=== PATIENT | male | born 1960 | race Caucasian/White ===

== ENCOUNTER 2020-03-21 11:47 | Inpatient (IN) | payer OTHER, SELFPAY ==
[2020-03-21] VITALS (8 sets, daily range): BP systolic 114–125; BP diastolic 66–90; PULSE 85–95; RESP 13–20; TEMP 36.6–36.8; O2SAT 97–100; BMI 28.3
--- NOTE | 2020-03-21 | ECHO_ITS ---
Patient Info Name: Wilbetr Lea Age: 60 years : 1960 Gender: Female Ht: 69 in Wt: 187 lbs BSA: 2.05 m2 HR: 86 bpm BP: 112 / 78 mmHg Technical Quality: Good Exam Date: 03/21/2020 2:03 PM Exam Location: [facility] Room: ICU9 Patient Status: Inpatient Admit Date: 03/21/2020 Staff Ordering Physician: Shen Lares MD Jacquard Card Lacer: Kennedi Sharma RDCS Attending Provider: Shen Lares MD Referring Physician: Arnaud PETERSON; Exam Type: CA echo doppler color flow Study Info Complete two-dimensional, color flow and Doppler transthoracic echocardiogram is performed with contrast to opacify the left ventricle and to improve the deliniation of the left ventricle endocardial borders. Summary 1. Left ventricular systolic function is mildly reduced, estimated at 40%.. 2. The left ventricular diastolic function is grade II diastolic dysfunction. 3. The apical septum, apical lateral wall, apical cap, and mid anteroseptal are akinetic. 4. There is trace mitral valve regurgitation. 5. There is mild tricuspid valve regurgitation. 6. No pulmonary hypertension, estimated pulmonary arterial systolic pressure is 31 mmHg. Left Ventricle Left ventricular systolic function is mildly reduced, estimated at 40%.. Left ventricular chamber dimension is normal. There is no increased left ventricular wall thickness. Left ventricular septal wall motion is normal. The left ventricular diastolic function is grade II diastolic dysfunction. Global longitudinal strain is abnormal at -8 %. The apical septum, apical lateral wall, apical cap, and mid anteroseptal are akinetic. Right Ventricle Right ventricular chamber dimension is normal. Right ventricular systolic function is normal. Left Atria Left atrial chamber dimension is normal. Right Atria Right atrial chamber dimension is normal. Aortic Valve The aortic valve is trileaflet. There is no aortic valve sclerosis. There is no aortic valve stenosis. There is no aortic valve regurgitation. Pulmonic Valve The pulmonic valve is normal. There is no pulmonic valve stenosis. There is trace pulmonic regurgitation. Mitral Valve The mitral valve has normal leaflets. There is no mitral valve stenosis. There is trace mitral valve regurgitation. Tricuspid Valve The tricuspid valve leaflets are normal. There is no significant tricuspid valve stenosis. There is mild tricuspid valve regurgitation. No pulmonary hypertension, estimated pulmonary arterial systolic pressure is 31 mmHg. Pericardium/Pleural The pericardium appears normal. There is no pericardial effusion. Inferior Vena Cava Normal inferior vena cava with >50% collapse upon inspiration consistent with normal right atrial pressure, 5 mmHg. Aorta The aortic root size at the sinus of Valsalva is normal. The prox ascending aorta size is normal. Left Ventricular Outflow Tract Name Value Normal LVOT 2D LVOT Diameter 2.1 cm LVOT Doppler LVOT Peak Gradient 4 mmHg LVOT Mean Gradient 3 mmHg LVOT VTI
--- NOTE | 2020-03-21 11:56 | ECG_ITS ---
Measurements Intervals [place] Rate: 84 P: 33 DC: 130 QRS: -51 QRSD: 86 T: 28 QT: 315 QTc: 373 Interpretive Statements SINUS RHYTHM INFERIOR INFARCT, AGE INDETERMINATE ANTEROLATERAL ST ELEVATION MYOCARDIAL INFARCT- ACUTE HIGH LATERAL ST ELEVATION MYOCARDIAL INJURY- ACUTE ABNORMAL ECG Electronically Signed On 03-21-2020 12:10:58 CDT by Sebastián Mann D.O.
[2020-03-21 12:09] LABS: Basophils Absolute Auto 0.1 K/mm3 (0.0-0.1); Basophils Percent Auto 0.3 % (0.2-1.2); Eosinophils Absolute Auto 0.1 K/mm3 (0-0.3); Eosinophils Percent Auto 0.3 % (0-4.4); Hematocrit 44.5 % (37.0-47.0); Immature Granulocyte Absolute 0.05 K/mm3 (0.00-0.031); Immature Granulocyte Percent A 0.3 % (0-0.5); Lymphocytes Absolute Auto 1.47 K/mm3 (0.9-3.2); Mean Corpuscular HGB Conc 33.7 g/dl (32-36); Mean Corpuscular Hemoglobin 31.4 pg (26-34); Mean Corpuscular Volume 93.3 fl (80-100); Mean Platelet Volume 9.8 fl (7.4-10.4); Monocytes Absolute Auto 1.6 K/mm3 (0.1-0.6); Monocytes Percent Auto 10.6 % (2.6-8.5); Neutrophils Absolute Auto 11.6 K/mm3 (1.3-6.7); Neutrophils Percent Auto 78.5 % (45.5-73.1); Platelet Count Result 254 k/mm3 (150-375); Red Blood Count 4.77 M/mm3 (4.2-5.4); Red Cell Distribution Width 13.7 % (11.5-14.5); White Blood Count 14.8 K/mm3 (4.5-10.0)
[2020-03-21] MEDS: ASPIRIN 81 MG CHEWABLE TABLET 324 MG PO (12:17)
[2020-03-21 12:19] LABS: INR 1.1
[2020-03-21 12:24] LABS: Blood Urea Nitrogen 27 mg/dL (7-17); Calcium 9.3 mg/dL (8.4-10.2); Carbon Dioxide 29 mmol/L (22-30); Chloride 98 mmol/L (98-107); Estimated CRCL calculation 34 ml/min; Estimated Glomerular Filt Rate 31; Glucose 108 mg/dL (65-105); Potassium 4.4 mmol/L (3.4-5.0); Sodium 133 mmol/L (137-145)
--- NOTE | 2020-03-21 12:34 | ED.CHESTPAIN ---
HPI - Chest Pain General Chief Complaint: Chest Pain Stated Complaint: possibly a heart attack Time Seen by Provider: 03/21/20 12:07 Source: patient Mode of arrival: ambulatory Limitations: no limitations History of Present Illness HPI narrative: This patient is a 60 year old male with history of hypertension and hyperlipidemia who presents to ER for evaluation of chest pain. He developed substernal chest pressure Saturday morning while performing yard work. He states he stopped working and his pain resolved. He states he then starting cutting shrubs again and his pain resolved. He states this pain continued until this morning at 2 am. He also reports associated shortness of breath until this morning. He denies history of cardiac disease. He went to see his PCP and he was found to have abnormal EKG so he was referred to ER. HE denies chest pain currently MD complaint: chest pain Onset (ago): day(s) Related Data Home Medications Medication Instructions Recorded Confirmed amlodipine-benazepril 1 cap PO DAILY 03/21/20 03/21/20 atorvastatin 10 mg PO DAILY 03/21/20 03/21/20 hydrochlorothiazide 12.5 mg PO DAILY 03/21/20 03/21/20 tramadol 50 mg PO Q6H PRN 03/21/20 03/21/20 Allergies Allergy/AdvReac Type Severity Reaction Status Date / Time No Known Allergies Allergy Verified 03/21/20 12:11 Review of Systems Review of Systems: All systems reviewed & are unremarkable except as noted in HPI and below Constitutional: Constitutional: Denies chills and Denies fever(s) Cardiovascular: Cardiovascular: Reports chest pain, Denies rapid heart rate and Reports radiating jaw, neck or arm pain Respiratory: Respiratory: Reports dyspnea Gastrointestinal: Gastrointestinal: Denies abdominal pain, Denies diarrhea, Denies nausea and Denies vomiting PMFSH Past Medical History Medical History Hyperlipidemia Hypertension Surgical History Surgical History H/O repair of rotator cuff Family History Family History Father Acute myocardial infarction Social History Social History Smoking status: Former smoker Alcohol intake: never Substance use: never Substance use type: does not use Gender identity (if verbalized by the patient): Male Exam Narrative: Exam Narrative: GENERAL: Well-appearing, well-nourished, and in no acute distress. HEAD: Normocephalic, atraumatic EYES: PERRLA and EOMI, conjunctiva clear without discharge THROAT:Mucous membranes moist, Oropharynx normal without erythema, exudate, peritonsillar swelling or fluctuance NECK: Supple, without lymphadenopathy or mass RESPIRATORY: No respiratory distress, Airway patent, Respirations non-labored, Clear to auscultation without rales, rhonchi or wheeze HEART: Regular rate and rhythm. No murmur heard. Normal peripheral pulses. ABDOMEN: Soft, nontender, nondistended, normal active bowel sounds. No masses. No rebound or guarding, No organomegaly. EXTREMITIES: No edema, normal strength with full range of motion. SKIN: Warm, dry, normal color without rash NEURO: Alert and oriented x3. CN 2-12 grossly intact. No focal deficits. PSYCH: Normal mood and affect. Course Consultations Consultation #1: Dr. Vasques is at bedside to Evaluated patient. Patient EKG has diffused ST elevation so he likely completely infarct. Dr. Vasques called his team to take patient to lab analyst. Date: 03/21/20 Time: 12:05 Vital Signs Vital signs: Vital Signs Temperature 97.9 F 03/21/20 11:50 Pulse Rate 88 03/21/20 11:50 Respiratory Rate 14 03/21/20 11:50 Blood Pressure 114/75 03/21/20 11:50 Pulse Oximetry 100 03/21/20 11:50 Temperature 98.2 F 03/21/20 16:00 Pulse Rate 90 03/21/20 18:00 Respiratory Rate 20 03/21/20 16:00 Blood Pres
--- NOTE | 2020-03-21 13:21 | PM.IMHP ---
H&P: HPI History of Present Illness Chief complaint: stemi Narrative: date of service 03/21/2020 Wilbert Lea is a 60 year old male with past medical history of hypertension and hyperlipidemia who started Saturday and 1 working having central chest pain then it resolved followed by shortness of breath that continued and resolved to a.m. this morning. He visited his primary care doctor did an EKG and sent him to the emergency room. EKG shows Q-waves lead V1 to V6 with ST elevation. at this time patient denies chest pain, shortness of breath, dizziness, syncope, palpitations. He stated when he had the chest pain he uses ibuprofen to thin the blood. he takes ibuprofen 3 times per week for headaches. denies smoking, alcohol, family history of CAD. at home he takes benazepril, water pill, cholesterol pill. tramadol, ibuprofen. Review of Systems Review of Systems: All systems reviewed & are unremarkable except as noted in HPI and below Constitutional: Constitutional: Denies chills, Denies fatigue, Denies fever(s), Denies headache(s) and Denies snoring Eyes: Eyes: Denies eye discharge and Denies loss of vision ENT: Denies dizziness, Denies headache(s), Denies nasal discharge and Denies sore throat Cardiovascular: Cardiovascular: Reports as per HPI, Reports chest pain, Denies syncope, Denies rapid heart rate, Denies leg edema, Reports dyspnea, Reports dyspnea on exertion, Denies orthopnea and Denies paroxysmal nocturnal dyspnea Respiratory: Respiratory: Denies chest congestion, Denies cough, Reports dyspnea, Reports dyspnea on exertion, Denies snoring and Denies wheezing Gastrointestinal: Gastrointestinal: Denies abdominal pain, Denies diarrhea, Denies nausea and Denies vomiting Genitourinary: Genitourinary: Denies hematuria, Denies urinary frequency, Denies dysuria and Denies flank pain Musculoskeletal: Musculoskeletal: Denies myalgias, Denies arthralgias and Denies joint swelling Neurologic: Denies Abnormal speech present, Denies dizziness, Denies syncope, Denies headache(s), Denies focal weakness and Denies loss of vision Psychiatric: Psychiatric: Denies anxiety and Denies depression Endocrine: Endocrine: Denies cold intolerance, Denies fatigue and Denies heat intolerance Hematologic/Lymphatic: Hematologic/Lymphatic: Denies easy bleeding and Denies easy bruising Allergic/Immunologic: Allergic/Immunologic: Denies urticaria and Denies wheezing PMFSH Past Medical History Medical History Hyperlipidemia Hypertension Surgical History Surgical History H/O repair of rotator cuff Family History Family History Father Acute myocardial infarction Social History Social History Smoking status: Never smoker Alcohol intake: never Meds Home Medications and Allergies Allergies Allergy/AdvReac Type Severity Reaction Status Date / Time No Known Allergies Allergy Verified 03/21/20 12:11 Vital Signs Vital Signs - 24 hr 03/21/20 11:50 03/21/20 12:11 03/21/20 12:17 Temperature 36.6 C Pulse Rate 88 86 93 Respiratory Rate 14 13 Blood Pressure 114/75 124/66 Pulse Oximetry 100 100 03/21/20 12:18 Temperature Pulse Rate Respiratory Rate Blood Pressure Pulse Oximetry 100 Exam Const: General: cooperative, healthy appearing, comfortable, no acute distress and well developed Nutritional Appearance: well nourished Orientation/consciousness: patient oriented x3 HENMT: Head: normal to inspection, normocephalic and atraumatic Ears: hearing grossly normal bilaterally and external ears normal General nose exam: Normal external nose present and Normal nares present Face and sinus: normal facial exam and no erythema Mouth: Yes moist mucous membranes and No lip abnormal Throat: uvula midline
--- NOTE | 2020-03-21 13:29 | P.PCNCC_ITS ---
Cardiac Cath Procedure Note Date of procedure:: 03/21/20 Performing physician:: Shen Lares MD date of service March 21, 2020 Indication:: late presentation STEMI Brief clinical history:: Wilbert Lea is a 60 year old male with past medical history of hypertension and hyperlipidemia who started Saturday and 1 working having central chest pain then it resolved followed by shortness of breath that continued and resolved to a.m. this morning. He visited his primary care doctor did an EKG and sent him to the emergency room. EKG shows Q-waves lead V1 to V6 with ST elevation. at this time patient denies chest pain, shortness of breath, dizziness, syncope, palpitations. He stated when he had the chest pain he uses ibuprofen to thin the blood. he takes ibuprofen 3 times per week for headaches. denies smoking, alcohol, family history of CAD. Procedure Procedure performed:: 1-Moderate sedation that started at 12: 49 pm and ended at 1317 pm using 3mg of Versed and 50mg fentanyl. The registered nurse mac simmons. 2-Selective left and right coronary angiogram. 3-Left heart catheterization with measurement of LVEDP and measurement of gradient across aortic valve. 4- LV angiogram. 4-Right common femoral arterial angiogram. 5-Deployment of 6 Palestinian Angio-Seal. Sedation/Medication given:: Moderate sedation. Access site:: Right common femoral artery. Estimated blood loss:: 10cc Procedure note:: After informed consent patient was brought in to systems testing laboratory technician with the was draped and prepped in usual manner. Moderate sedation was given and the right groin was infiltrated using 1% lidocaine. Five Palestinian sheath was obtained using micropuncture needle and the modified Seldinger technique. Selective left coronary angiogram was done using JL4 catheter with the tip of the catheter placed in the left main coronary artery. Selective right coronary angiogram was done using JR4 catheter with the tip of the catheter placed to the right coronary artery. After that 5 Palestinian pigtail catheter was advanced across the aortic valve into the left ventricle with measurement of LVEDP and measurement of gradient across aortic valve. LV angiogram was done as well. Right common femoral arterial angiogram was done. Findings:: 1- left coronary artery is a large artery that divides into large LAD, large circumflex artery. Left main Has minimal irregularities. 2- left anterior descending artery is a large artery And totally occluded in the mid segment. approximately diffuse 20% stenosis. proximally gives rise to small to medium diagonal 1 and diagonal 2 branches that looked unremarkable. 3- left circumflex artery is a large artery as in the mid segment 40% to 50% stenosis. 4- right coronary artery is Large artery and dominant and has ostial 40%. And diffuse minimal irregularities. 5- LVEDP was 15 mm Hg and no gradient across aortic valve. 5- LV angiogram shows estimated ejection fraction 40-45%. A kinesis of mid anterior wall, apical, apical inferior wall. Cannot exclude a thrombus at the apex. 6- opening arterial pressure was 110/70 and closing pressure was 105/65. 7- right femoral artery angiogram shows no significant disease in the right common femoral artery. Conclusion:: 1- late presentation STEMI, totally occluded mid LAD. 2- mid left circumflex artery 40-50%. 3- ostial right coronary artery 40%. 4- estimated ejection fraction 40-45%. Assessment and Plan Additional Plan 1- continue aspirin indefinitely. 2- high-intensity statin. 3- obtain an echocardiogram with contrast to rule out apical thrombus.
--- NOTE | 2020-03-21 13:29 | WPDMODSED ---
Moderate Sedation Note-Pt Data Patient Data Allergies Allergy/AdvReac Type Severity Reaction Status Date / Time No Known Allergies Allergy Verified 03/21/20 12:11 Sedation/Anesthesia: No previous sedation/anesthesia problems (including family history). [facility] Past Medical History Medical History Hyperlipidemia Hypertension Surgical History Surgical History H/O repair of rotator cuff Family History Family History Father Acute myocardial infarction Social History Social History Smoking status: Never smoker Alcohol intake: never Mod Sed Physical Exam Physical Exam Pre Procedural Exam: Normal: Appearance, Eyes, Ears, Nose, Neck, Throat, Airway, Lungs, Heart Size, Heart Rate, Heart Rhythm, Neuro Exam, Abdomen, Liver, Kidneys, Spleen, Breasts, Genitalia, Extremities and Skin Hours since solid foods: 8 Hours since liquid intake: 8 Internal Medicine - PN: Obj Da Vital Signs Vital Signs: Vital Signs - 24 hr 03/21/20 11:50 03/21/20 12:11 03/21/20 12:17 Temperature 36.6 C Pulse Rate 88 86 93 Respiratory Rate 14 13 Blood Pressure 114/75 124/66 Pulse Oximetry 100 100 03/21/20 12:18 Temperature Pulse Rate Respiratory Rate Blood Pressure Pulse Oximetry 100 Labs CBC & Chem 7: 03/21/20 11:58 03/21/20 11:58 Labs: Laboratory Results - last 24 hr 03/21/20 03/21/20 03/21/20 11:58 11:58 11:58 WBC 14.8 H RBC 4.77 Hgb 15.0 Hct 44.5 MCV 93.3 MCH 31.4 MCHC 33.7 RDW 13.7 Plt Count 254 MPV 9.8 Immature Gran % (Auto) 0.3 Neut % (Auto) 78.5 H Lymph % (Auto) 10.0 L [place] % (Auto) 10.6 H Eos % (Auto) 0.3 Baso % (Auto) 0.3 Lymph # (Auto) 1.47 [place] # (Auto) 1.6 H Eos # (Auto) 0.1 Baso # (Auto) 0.1 Abs Immat Gran (auto) 0.05 H Absolute Neuts (auto) 11.6 H Absolute Nucleated RBC 0.0 Nucleated RBC % 0.0 PT 14.0 INR 1.1 APTT 30.0 Sodium 133 L Potassium 4.4 Chloride 98 Carbon Dioxide 29 BUN 27 H Creatinine 1.70 H Estim Creat Clear Calc 34 Estimated GFR 31 L Glucose 108 H Calcium 9.3 Troponin I 24.900 H* ASA Classification/Sedation ASA Classification/Sedation ASA Class: I Emergent: No Risks: Risks, benefits and alternatives explained and patient/family accepted plan for sedation. Patient re-evaluated immediately prior to sedation.
--- NOTE | 2020-03-21 13:29 | WPDHPUPDATE1 ---
History and Physical Update Update Date/Time: 03/21/20 13:29 History and Physical has been reviewed, including an updated exam of the patient. There are NO changes in the patient's condition. Risks, benefits, and alternatives have been discussed and questions answered. Patient agrees to proceed with procedure.
--- NOTE | 2020-03-21 14:13 | ADMIMU ---
This patient, Wilbert Lea, was admitted to IMU status, and placed in Intensive Care Unit-9 at 1335. Patient/family oriented to hospital policies and general routines including ID bracelet, bed and alarms, visiting hours, pain management, procedures, bathroom and other care routines, personal items, smoking policy, room service/diet, and visiting hours. Valuables list has been completed. Information on how to activate the Rapid Response Team has been discussed. Patient/Family are encouraged to report perceived risks to care and to ask questions if they do not understand what they are told or what they should do.
[2020-03-21] MEDS: SODIUM CHLORIDE 0.9% IV 1,000 ML 75 ML IV CONT (14:28)
[2020-03-21] MEDS: PERFLUTREN LIPID MICROSPHERES 1.5 ML VIAL DILUTED TO 10 ML TOTAL VOLUME IV PUSH (16:03)
[2020-03-21] MEDS: ATORVASTATIN 40 MG TABLET 80 MG BY MOUTH (16:08)
[2020-03-21] MEDS: LOSARTAN POTASSIUM 25 MG TABLET PO (16:08)
[2020-03-21] MEDS: METOPROLOL TARTRATE 12.5 MG TABLET PO (22:09)
[2020-03-22] VITALS (12 sets, daily range): BP systolic 106–113; BP diastolic 68–78; PULSE 76–94; RESP 16–18; TEMP 36.6–36.8; O2SAT 95–97
[2020-03-22] MEDS: traMADol HCL 50 MG TABLET PO (04:32)
[2020-03-22 05:20] LABS: Blood Urea Nitrogen 21 mg/dL (7-17); Calcium 8.4 mg/dL (8.4-10.2); Carbon Dioxide 27 mmol/L (22-30); Chloride 103 mmol/L (98-107); Estimated CRCL calculation 50 ml/min; Estimated Glomerular Filt Rate 42; Glucose 96 mg/dL (65-105); Potassium 4.5 mmol/L (3.4-5.0); Sodium 132 mmol/L (137-145)
[2020-03-22] MEDS: LOSARTAN POTASSIUM 25 MG TABLET PO (10:01)
[2020-03-22] MEDS: METOPROLOL TARTRATE 12.5 MG TABLET PO ×2 (10:01→21:23)
[2020-03-22] MEDS: ASPIRIN 81 MG ENTERIC TABLET PO (10:01)
--- NOTE | 2020-03-22 11:16 | PM.PNCARD ---
Progress Note: A&P Assessment and Plan (1) Myocardial infarction: Code(s): I21.9 - Acute myocardial infarction, unspecified Status: Acute Assessment and Plan: Patient with late presentation ST-elevation ND, found to have occluded LAD. Apparently, no PCI was performed delayed presentation. Currently, patient denies chest pain or shortness of breath. Continue aspirin, will add clopidogrel. Continue beta-pepito, statin. Transferred to telemetry. Subjective Date/time seen: 03/22/20 11:16 Date of service 03/22/2024 Chief complaint: Presented with shortness of breath Interval history: Patient presented with shortness of breath that started 4 days ago, found to have ST elevation in the anteroseptal leads. Found to have occluded mid LAD, and apparently PCI was not performed due to the patient's late presentation. Patient denies shortness of breath at present. He denies chest pain. On telemetry, he is in sinus rhythm with persistent ST elevation. Review of Systems Constitutional: Constitutional: Denies chills, Denies fatigue, Denies fever(s) and Denies headache(s) Eyes: Eyes: Reports as per HPI, Denies change in vision, Denies loss of vision and Denies eye pain ENT: Reports as per HPI, Reports Normal hearing present, Denies headache(s), Denies lip swelling, Denies epistaxis and Denies sore throat Cardiovascular: Cardiovascular: Reports as per HPI, Denies chest pain, Denies syncope, Denies irregular heart rhythm, Denies lightheadedness and Denies dyspnea Respiratory: Respiratory: Reports as per HPI, Denies cough, Denies dyspnea and Denies wheezing Gastrointestinal: Gastrointestinal: Reports as per HPI, Denies abdominal pain, Denies melena, Denies nausea and Denies vomiting Genitourinary: Genitourinary: Reports as per HPI Musculoskeletal: Musculoskeletal: Reports as per HPI, Denies myalgias, Denies muscle cramps and Denies muscle weakness Integumentary/Breasts: Skin/Breast: Reports as per HPI, Denies pruritus and Denies rash Neurologic: Reports as per HPI, Reports Normal hearing present, Denies behavioral changes, Denies syncope, Denies headache(s) and Denies loss of vision Psychiatric: Psychiatric: Reports as per HPI, Denies anxiety, Denies behavioral changes and Denies depression Endocrine: Endocrine: Reports as per HPI, Denies fatigue, Denies polydipsia and Denies polyuria Hematologic/Lymphatic: Hematologic/Lymphatic: Reports as per HPI, Denies easy bleeding and Denies easy bruising Allergic/Immunologic: Allergic/Immunologic: Reports as per HPI, Denies lip swelling and Denies wheezing Exam Const: General: no acute distress, alert and awake HENMT: Head: normocephalic and atraumatic Ears: hearing grossly normal bilaterally and external ears normal General nose exam: Normal external nose present and no epistaxis Face and sinus: normal facial exam and no ecchymosis Mouth: Yes tongue normal and Yes moist mucous membranes Teeth and gingiva: dentition normal Eyes: Conjunctivae: conjunctivae normal Sclera: sclerae normal Pupils: Equal, round and reactive pupils present EOM: EOMs intact bilaterally Neck: Neck: normal visual inspection, supple and no JVD Thyroid: thyroid normal Carotids: normal carotid upstroke Resp: Effort & Inspection: normal respiratory effort and able to speak in complete sentences Auscultation: clear to auscultation bilaterally Cardio: Jugular venous distension: no JVD Rate: regular rate Rhythm: regular rhythm Heart sounds: S1 normal heart sound present, S2 normal heart sound present and no murmurs GI: Inspection: normal to inspection GI Palp: No abdominal tenderness Auscultation: normal bowel sounds Skin: Other: no rash on exposed areas, no cyanosis Neuro: Cranial nerves: Yes Equal, round and reactive pupils present and Yes Normal hearing present Other: alert, oriented, no major focal deficits on gross neurological examination Extrem: Other: no edema, no cyanosis, no major
[2020-03-22] MEDS: CLOPIDOGREL BISULFATE 75 MG TABLET PO (13:07)
[2020-03-22] MEDS: ATORVASTATIN 40 MG TABLET 80 MG BY MOUTH (17:21)
[2020-03-23] VITALS (8 sets, daily range): BP systolic 116–119; BP diastolic 74–77; PULSE 79–95; RESP 17–22; TEMP 36.8–36.9; O2SAT 98–99
[2020-03-23] MEDS: ASPIRIN 81 MG ENTERIC TABLET PO (08:16)
[2020-03-23] MEDS: CLOPIDOGREL BISULFATE 75 MG TABLET PO (08:16)
[2020-03-23] MEDS: LOSARTAN POTASSIUM 25 MG TABLET PO (08:17)
[2020-03-23] MEDS: METOPROLOL TARTRATE 12.5 MG TABLET PO (08:17)
[2020-03-23 11:27] LABS: Blood Urea Nitrogen 20 mg/dL (9-20); Calcium 8.4 mg/dL (8.4-10.2); Carbon Dioxide 27 mmol/L (22-30); Chloride 103 mmol/L (98-107); Estimated CRCL calculation 60 ml/min; Estimated Glomerular Filt Rate > 60; Glucose 123 mg/dL (75-110); Potassium 4.1 mmol/L (3.4-5.0); Sodium 134 mmol/L (137-145)
--- NOTE | 2020-03-29 16:55 | PM.DS ---
DS: Admitting Diagnosis Admitting Diagnosis Admitting Diagnosis: Acute myocardial infarction, unspecified DS: Discharge Diagnosis Discharge Diagnosis (1) Myocardial infarction: Code(s): I21.9 - Acute myocardial infarction, unspecified Status: Acute Assessment and Plan: Late presentation ST-elevation [place], found to have occluded LAD. No PCI was performed delayed presentation. Echocardiogram 03/21/2020: LV systolic function mild reduced estimated EF 40%. LV diastolic dysfunction is grade 2. Apical septum, apical lateral wall, apical cap and mid anterior septal are akinetic. Trace mitral valve regurgitation. No pulmonary hypertension. Estimated pulmonary arterial systolic pressure 31 mm Hg. Denies chest discomfort, shortness of breath or lightheadedness. Continue aspirin, clopidogrel, losartan, Metoprolol succinate and atorvastatin. Right groin site without swelling or bleeding. No femoral bruit. Distal pulses intact. Still has some mild tenderness. Very long discussion regarding coronary artery disease, myocardial infarction, activity restrictions post [place], medications and importance of close follow-up. He is adamant that he does not want to see Dr Lares or anyone in our group. He will follow up with a packaging engineer at [place] however the next available opening for a new patient is in April. He was instructed to follow up with his Primary Care Provider within 2 weeks. Records from [place] will be scanned into his EPIC chart for the physician to review. CD disc of his cardiac catheterization will be mailed for her review as well DS: Summary Hospital Course Reason for hospitalization: Chest pain Myocardial infarction Hospital Course: 60-year-old male with past medical history of hypertension and hyperlipidemia started having chest discomfort followed by shortness of breath the Saturday before admission. On Saturday morning he saw his Primary Care Provider who did an EKG and sent him to the emergency room. The EKG showed Q-waves in lead V1 to V6 with ST elevation. At the time of his admission he denied any chest pain, shortness of breath, dizziness, syncope or palpitations. He was taken to the cardiac catheterization lab by Dr Lares on 03/21/2020 with a significant findings of totally occluded mid LAD. Mid left circumflex artery 40-50%. Ostial right coronary artery 40%. Estimated ejection fraction 40-45%. Echocardiogram did not reveal any thrombus. He was started on aspirin, atorvastatin, losartan and Metoprolol tartrate. Clopidogrel 75 mg daily was added to his regimen. He had no arrhythmias. Vital signs were stable.Chest discomfort or shortness of breath. Right groin site was without swelling or bleeding. No femoral bruit. Distal pulses intact. He was discharged home in stable and pain-free condition. Status at Discharge Functional status at discharge: independent ambulation Overall status at discharge: patient is back to baseline Time Spent with Patient Time attestation: Total time spent providing and/or coordinating discharge services: 44 minutes in his room answering the number questions, discussing coronary artery disease, LV dysfunction, medications, activity restrictions, obtaining his follow-up appointment with packaging engineer at [place], obtaining CD disc of his cardiac catheterization to be mailed to , making phone call to see if he get an earlier appointment, cancelling the appointment scheduled in our office. 20 minutes to do discharge orders and discharge summary Total time: 64 minutes Time spent: Greater than 30 minutes Exam Const: General: cooperative, healthy appearing, comfortable, no acute distress, well developed, alert and awake Nutritional Appearance: well nourished Orientation/consciousness: patient oriented x3 HENMT: Head: normal to inspection, normocephalic and atraumatic Ears: hearing grossly normal bilaterally and external ears n
== END 2020-03-23 13:09 | disposition home or self-care (01) | DRG 282 ==
LOC: ANHED 12:18 → ANHICU 12:34
PROVIDERS: Nurse Practitioner Adult Health; Admitting Provider Internal Medicine Cardiovascular Disease; Emergency Provider General Practice; PCP Internal Medicine; Visit Provider Internal Medicine Cardiovascular Disease
PROC: 4A023N7 Measurement of Cardiac Sampling and Pressure, Left Heart, Percutaneous Approach (ICD-10-PCS; CPT 93452; principal; 2020-03-21 12:40)
PROC: 4A023N7 Measurement of Cardiac Sampling and Pressure, Left Heart, Percutaneous Approach (ICD-10-PCS; 2020-03-21 12:40)
DX: I21.02 ST elevation (STEMI) myocardial infarction involving left anterior descending coronary artery (principal); I10 Essential (primary) hypertension; E78.5 Hyperlipidemia, unspecified; Z87.891 Personal history of nicotine dependence
CPT/HCPCS: 36415; 80048; 84484; 85025; 85610; 85730; 93005; 93306; 93458; 99285; A9270; C1760; C1887; C1894; C8929; G0269; J1200; J1644; J2250; J3010; J7030; J7040; Q9957